=== PATIENT | female | born 1960 | race American Indian/Alaskan Native ===

== ENCOUNTER 2016-10-15 14:10 | Emergency (ER) | payer SELFPAY ==
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
[2016-10-15 17:17] LABS: Basophils % (Auto) 0.9 % (0.0-1.8); Eosinophils % (Auto) 4.7 % (0.0-4.3); Hematocrit 43.2 % (30.3-42.9); Hemoglobin 13.9 gm/dl (10.1-14.3); Mean Corpuscular HGB Conc 32 % (30-34); Mean Corpuscular Hemoglobin 28 pg (28-32); Mean Corpuscular Volume 88 fl (79-97); Platelet Count 280 K/mm3 (140-440); Red Cell Distribution Width 13.9 % (13.2-15.2); White Blood Count 6.4 K/mm3 (4.5-11.0)
[2016-10-15 17:34] LABS: Anion Gap 18 mmol/L; Blood Urea Nitrogen 7 mg/dL (7-17); Calcium 10.7 mg/dL (8.4-10.2); Carbon Dioxide 28 mmol/L (22-30); Glucose 109 mg/dL (65-100); Potassium 4.3 mmol/L (3.6-5.0); Sodium 143 mmol/L (137-145)
[2016-10-15 18:30] VITALS: BP 145/74
== END 2016-10-15 18:26 | disposition home or self-care (01) ==
LOC: ED 14:10
DX: R42 Dizziness and giddiness (principal)
CPT/HCPCS: 36415; 71020; 80048; 82375; 82805; 84484; 85025; 93005; 93010; 99283

== ENCOUNTER 2017-08-30 21:54 | Emergency (ER) | payer OTHER ==
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
[2017-08-31] MEDS ORDERED: MOTRIN PO ONE (05:07)
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
[2017-08-31 06:52] VITALS: BP 134/74
== END 2017-08-31 06:54 | disposition home or self-care (01) ==
LOC: ED 21:54
DX: M54.5 Low back pain (principal); V49.40XA Driver injured in collision with unspecified motor vehicles in traffic accident, initial encounter; M51.36 Other intervertebral disc degeneration, lumbar region; M62.830 Muscle spasm of back; Z90.710 Acquired absence of both cervix and uterus; Y93.89 Activity, other specified; Y92.89 Other specified places as the place of occurrence of the external cause; Y99.8 Other external cause status
CPT/HCPCS: 72100; 99283

== ENCOUNTER 2018-05-16 15:20 | Emergency (ER) | payer OTHER ==
[2018-05-16 15:29] VITALS: BP 129/58
--- NOTE | 2018-05-16 16:03 | Emergency Department Report ---
ED ENT HPI - General Chief complaint: Earache Stated complaint: RT EAR PAIN Time Seen by Provider: 05/16/18 15:35 Source: patient Mode of arrival: Ambulatory Limitations: No Limitations - History of Present Illness Initial comments: This is a 58-year-old female who presents to ED complaining of right ear pain being gone on for the past year. Patient states that she thinks that there is something in her right ear she feels like a weird moving sensation. Patient states that symptoms are going on intermittently for a year but she has been too scared to go have it evaluated. Patient denies any hearing loss or injuries to the ear. - Related Data Previous Rx's Medication Instructions Recorded Last Taken Type traMADol [Ultram 50 MG tab] 50 mg PO Q6HR PRN #10 tablet 05/17/14 Unknown Rx hydrOXYzine HCL [Atarax] 25 mg PO Q6HR PRN #12 tablet 10/20/14 Unknown Rx methylPREDNISolone [Medrol Dose 4 mg PO QAM #1 pack 10/20/14 Unknown Rx Torin] Dicyclomine [Bentyl] 10 mg PO QID PRN #20 capsule 06/06/15 Unknown Rx Ketorolac [Toradol] 10 mg PO Q6H PRN #20 tablet 06/06/15 Unknown Rx Nitrofurantoin [place]/M-Cryst 100 mg PO Q12HR #13 capsule 06/06/15 Unknown Rx [Macrobid CAP] Ondansetron [Zofran Odt] 4 mg PO QID PRN #20 tab.rapdis 06/06/15 Unknown Rx Cyclobenzaprine [Flexeril] 10 mg PO TID PRN #12 tablet 08/31/17 Unknown Rx Amoxicillin/Potassium Clav 1 each PO BID #10 tablet 05/16/18 Unknown Rx [Augmentin 875-125 Tablet] Ibuprofen [Advil 100 MG tab] 800 mg PO PRN PRN #15 tablet 05/16/18 Unknown Rx Ofloxacin 0.3% [Floxin Otic] 1 - 2 drops OT TID #1 bottle 05/16/18 Unknown Rx Allergies Allergy/AdvReac Type Severity Reaction Status Date / Time No Known Allergies Allergy Verified 10/20/14 18:42 ED Dental HPI - General Chief complaint: Earache Stated complaint: RT EAR PAIN Time Seen by Provider: 05/16/18 15:35 Source: patient Mode of arrival: Ambulatory Limitations: No Limitations - Related Data Previous Rx's Medication Instructions Recorded Last Taken Type traMADol [Ultram 50 MG tab] 50 mg PO Q6HR PRN #10 tablet 05/17/14 Unknown Rx hydrOXYzine HCL [Atarax] 25 mg PO Q6HR PRN #12 tablet 10/20/14 Unknown Rx methylPREDNISolone [Medrol Dose 4 mg PO QAM #1 pack 10/20/14 Unknown Rx Torin] Dicyclomine [Bentyl] 10 mg PO QID PRN #20 capsule 06/06/15 Unknown Rx Ketorolac [Toradol] 10 mg PO Q6H PRN #20 tablet 06/06/15 Unknown Rx Nitrofurantoin [place]/M-Cryst 100 mg PO Q12HR #13 capsule 06/06/15 Unknown Rx [Macrobid CAP] Ondansetron [Zofran Odt] 4 mg PO QID PRN #20 tab.rapdis 06/06/15 Unknown Rx Cyclobenzaprine [Flexeril] 10 mg PO TID PRN #12 tablet 08/31/17 Unknown Rx Amoxicillin/Potassium Clav 1 each PO BID #10 tablet 05/16/18 Unknown Rx [Augmentin 875-125 Tablet] Ibuprofen [Advil 100 MG tab] 800 mg PO PRN PRN #15 tablet 05/16/18 Unknown Rx Ofloxacin 0.3% [Floxin Otic] 1 - 2 drops OT TID #1 bottle 05/16/18 Unknown Rx Allergies Allergy/AdvReac Type Severity Reaction Status Date / Time No Known Allergies Allergy Verified 10/20/14 18:42 ED Review of Systems ROS: Stated complaint: RT EAR PAIN Other details as noted in HPI Comment: All other systems reviewed and negative ED Past Medical Hx - Past Medical History Previous Medical History?: No Additional medical history: ankle injury - twisted 01/24/14 - Surgical History Past Surgical History?: Yes Additional Surgical History: hysterectomy - Social History Smoking Status: Never Smoker Substance Use Type: None - Medications Home Medications: Home Medications Medication Instructions Recorded Confirmed Last Taken Type traMADol [Ultram 50 MG tab] 50 mg PO Q6HR PRN #10 tablet 05/17/14 Unknown Rx hydrOXYzine HCL [Atarax] 25 mg PO Q6HR PRN #12 tablet 10/20/14 Unknown Rx methylPREDNISolone [Medrol Dose 4 mg PO QAM #1 pack 10/20/14 Unknown Rx Torin] Dicyclomine [Bentyl] 10 mg PO QID PRN #20 capsule 06/06/15 Unknown Rx Ketorolac [Toradol] 10 mg PO Q6H PRN #20 tablet 06/06/15 Unknown Rx Nitrofurantoin [place]/M-Cryst 100 mg PO Q12HR #13 capsule 06/06/15 Unknown Rx [Macrobid CAP] Ondansetron [Zofran Odt] 4 mg PO QID PRN #20 tab.rapdis 06/06/15 Unknown Rx Cyclobenzaprine [Flexeril] 10 mg PO TID PRN #12 tablet 08/31/17 Unknown Rx Amoxicillin/Potassium Clav 1 each PO BID #10 tablet 05/16/18 Unknown Rx [Augmentin 875-125 Tablet] Ibuprofen [Advil 100 MG tab] 800 mg PO PRN PRN #15 tablet 05/16/18 Unknown Rx Ofloxacin 0.3% [Floxin Otic] 1 - 2 drops OT TID #1 bottle 05/16/18 Unknown Rx ED Physical Exam - General Limitations: No Limitations General appearance: alert, in no apparent distress - Head Head exam: Present: atraumatic, normocephalic - Eye Eye exam: Present: normal appearance - ENT ENT exam: Present: mucous membranes moist. Absent: TM's normal bilaterally - Expanded ENT Exam Expanded TM/Canal exam: Erythema: Right TM, Left TM, Effusion: Right TM, Perforation: Right TM, Loss of Landmarks: Right TM, Canal Discharge: Right TM Mouth exam: Present: normal external inspection Teeth exam: Present: normal inspection Throat exam: Positive: normal inspection - Neck Neck exam: Present: normal inspection - Respiratory Respiratory exam: Present: normal lung sounds bilaterally. Absent: respiratory distress - Cardiovascular Cardiovascular Exam: Present: regular rate, normal rhythm. Absent: systolic murmur, diastolic murmur, rubs, gallop - Neurological Exam Neurological exam: Present: alert, oriented X3 - Psychiatric Psychiatric exam: Present: normal affect, normal mood - Skin Skin exam: Present: warm, dry, intact, normal color. Absent: rash ED Course Vital Signs 05/16/18 15:26 Temperature 98.5 F Pulse Rate 71 Respiratory 16 Rate Blood Pressure 129/58 O2 Sat by Pulse 100 Oximetry ED Medical Decision Making - Medical Decision Making 58 year old female presents with chronic ear disease/tympanic membrane rupture/urine tympanic membrane infection Discussed the patient needs to follow-up with her ear specialists. I will give patient antibiotic drops to help with infection. Referrals for ear specialists is given. Patient is in no acute distress she is sitting comfortably in the ED chair. Critical care attestation.: If time is entered above; I have spent that time in minutes in the direct care of this critically ill patient, excluding procedure time. ED Disposition Clinical Impression: Otitis Disposition: [id number] TO HOME OR SELFCARE Is pt being admited?: No Does the pt Need Aspirin: No Condition: Stable Instructions: Otitis Externa (ED), Otitis Media (ED) Additional Instructions: Make sure to follow up with the primary care physician as discussed. Take all your medications as you've been prescribed. If you have any worsening symptoms or develop new symptoms please return to ED immediately. Prescriptions: Amoxicillin/Potassium Clav [Augmentin 875-125 Tablet] 1 each PO BID #10 tablet Ibuprofen [Advil 100 MG tab] 800 mg PO PRN PRN #15 tablet PRN Reason: Pain Ofloxacin 0.3% [Floxin Otic] 1 - 2 drops OT TID #1 bottle Referrals: [facility] [Provider Group] - 3-5 Days [facility] [Provider Group] - 3-5 Days Forms: Work/School Release Form(ED) Time of Disposition: 16:15
== END 2018-05-16 16:34 | disposition home or self-care (01) ==
LOC: ED 15:20
DX: H66.91 Otitis media, unspecified, right ear (principal); Z90.710 Acquired absence of both cervix and uterus
CPT/HCPCS: 99282

== ENCOUNTER 2018-08-18 03:56 | Emergency (ER) | payer OTHER ==
[2018-08-18] MEDS ORDERED: TYLENOL PO ONE (04:48)
[2018-08-18] MEDS ORDERED: TORADOL IM ONE (04:48)
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
[2018-08-18 07:04] VITALS: BP 137/68
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
== END 2018-08-18 06:40 | disposition home or self-care (01) ==
LOC: ED 03:56
DX: M54.5 Low back pain (principal); V49.49XA Driver injured in collision with other motor vehicles in traffic accident, initial encounter; X58.XXXA Exposure to other specified factors, initial encounter; Y93.89 Activity, other specified; Y92.89 Other specified places as the place of occurrence of the external cause; Y99.8 Other external cause status
CPT/HCPCS: 72100; 96372; 99283; J1885